=== PATIENT | male | born 1955 | race Caucasian/White ===

== ENCOUNTER 2016-06-18 20:37 | Emergency (ER) | payer MEDICAID, MEDICARE | END 2016-06-19 00:12 | disposition home or self-care (01) | LOC: ER 20:37 | DX: S01.81XA Laceration without foreign body of other part of head, initial encounter (principal); W01.0XXA Fall on same level from slipping, tripping and stumbling without subsequent striking against object, initial encounter; Y92.012 Bathroom of single-family (private) house as the place of occurrence of the external cause | CPT/HCPCS: 70450 ==